=== PATIENT | male | born 1955 | race African-American/Black ===

== ENCOUNTER 2017-06-10 10:06 | Emergency (ER) | payer OTHER ==
[2017-06-10 10:57] VITALS: BP 159/97; PULSE 85; TEMP 97.9; BMI 40.1
--- NOTE | 2017-06-10 11:05 | PDOC ---
History of Present Illness - General Chief Complaint: Eye Problem Stated Complaint: EYE INJURY Time Seen by Provider: 06/10/17 10:26 History Source: Patient Exam Limitations: No Limitations - History of Present Illness Initial Comments: 06/10/17 11:15 62 yr male with c/o right eye irritation after getting some dirt in his eye at work this morning. Pt sates he rubbed the eye now has pain. Pt wears glasses usually does not have today. Timing/Duration: 1-3 hours Severity: mild Associated Symptoms: reports: denies symptoms Past History - Past Medical History Allergies/Adverse Reactions: Allergies Allergy/AdvReac Type Severity Reaction Status Date / Time No Known Allergies Allergy Verified 06/10/17 10:11 Home Medications: Ambulatory Orders Sulfacetamide Sodium 10% [Bleph-10] 2 drop OD QID #1 bottle 06/10/17 Diabetes: Yes HTN: Yes - Psycho/Social/Smoking Cessation Hx Anxiety: No Suicidal Ideation: No Smoking History: Never smoked Have you smoked in the past 12 months: No Information on smoking cessation initiated: No Hx Alcohol Use: No Drug/Substance Use Hx: No Substance Use Type: None Review of Systems - Review of Systems Able to Perform ROS?: Yes Is the patient limited Mexican proficient: No Constitutional: No: Symptoms Reported HEENTM: Yes: See HPI *Physical Exam - Vital Signs Last Vital Signs Temp Pulse Resp BP Pulse Ox 97.9 F 85 18 159/97 99 06/10/17 10:11 06/10/17 10:11 06/10/17 10:11 06/10/17 10:11 06/10/17 10:11 - Physical Exam General Appearance: Yes: Nourished, Appropriately Dressed HEENT: positive: EOMI, NORMA, Other (right eye conjunctiva injected, sclera reddedened) Neck: positive: Supple Respiratory/Chest: positive: Lungs Clear, Normal Breath Sounds Cardiovascular: positive: Regular Rhythm, Regular Rate Procedures - Eye Procedure Alcaine Drops Administered: Yes (2 drops) Eye Irrigated w/ Saline([place]): Yes (irrigated with 200cc ) Medical Decision Making - Medical Decision Making 06/10/17 11:16 cc: right eye injury , photophobia after getting debris in eye will irrigate with saline pos fluoroscein uptake at 3 o'clock consistent with corneal abrasion EOMI ERNIE visual acuity 20/40 left eye right eye 20/60 will treat with bleph 10 eye drops, strict follow up with the opthomologist, pt understands the improtance of strict follow up 06/10/17 11:20 *DC/Admit/Observation/Transfer Diagnosis at time of Disposition: Abrasion of right cornea Qualifiers: Encounter type: initial encounter Qualified Code(s): S05.01XA - Injury of conjunctiva and corneal abrasion without foreign body, right eye, initial encounter - Discharge Dispostion Disposition: HOME Condition at time of disposition: Improved - Prescriptions Prescriptions: Sulfacetamide Sodium 10% [Bleph-10] 2 drop OD QID #1 bottle - Referrals Referrals: STAFF,NOT ON [Primary Care Provider] - Praneeth Pastrana MD [Staff Physician] - - Patient Instructions Additional Instructions: follow with the opthomologist tomorrow or thursday for follow up make sure you use the eye drops as directed for 5 days always wear protective eyewear at work and use sunglasses when outside - Post Discharge Activity Work/School Note: Back to Work
== END 2017-06-10 11:24 | disposition home or self-care (01) ==
LOC: JER 10:06
DX: S05.01XA Injury of conjunctiva and corneal abrasion without foreign body, right eye, initial encounter (principal); X58.XXXA Exposure to other specified factors, initial encounter; Y93.89 Activity, other specified; Y92.9 Unspecified place or not applicable; E11.9 Type 2 diabetes mellitus without complications; I10 Essential (primary) hypertension
CPT/HCPCS: 99281-25